=== PATIENT | female | born 1980 | race Caucasian/White ===

== ENCOUNTER 2017-01-18 16:04 | Emergency (ER) | payer OTHER ==
[~2017-01-18] VITALS: Ht 162.6 cm; Wt 52.0 kg
[~2017-01-18 16:04] MED LIST: CEPH500C3 PO; LORTA10 PO
[2017-01-18 16:17] VITALS: BP 131/87; PULSE 83; RESP 16; TEMP 98.3; O2SAT 96
[2017-01-18] MEDS ORDERED: SODIUM CHLORIDE 0.9% FLUSH 10 ML FLUSH IVF PRN (16:45)
--- NOTE | 2017-01-18 16:50 | PD ---
Physical Exam Date Seen by Provider: January 18, 2017 Time Seen by Provider: 16:45 Data Data Last Documented VS Vital Signs Date Time Temp Pulse Resp B/P Pulse Ox O2 Delivery O2 Flow Rate FiO2 01/18/17 16:47 99 Room Air 01/18/17 16:17 98.3 83 16 131/87 Orders Basic Metabolic Panel (Bmp) (01/18/17 16:41) Complete Blood Count With Diff (01/18/17 16:41) Prothrombin Time / Inr (Pt) (01/18/17 16:41) Act Partial Throm Time (Ptt) (01/18/17 16:41) Chest, Single Ap (01/18/17 16:41) Pelvis, Ap Only (Routine) (01/18/17 16:41) Ct Brain W/O Iv Contrast(Rout) (01/18/17 16:41) Ct Cerv Spine W/O Contrast (01/18/17 16:41) Ct Abd/Pel W Iv Contrast(Rout) (01/18/17 16:41) Ct Thorax/ Chest W Iv Contrast (01/18/17 16:41) Iv Access Insert/Monitor (01/18/17 16:41) Ecg Monitoring (01/18/17 16:41) Oximetry (01/18/17 16:41) Oxygen Administration (01/18/17 16:41) Sodium Chloride 0.9% Flush (Ns Flush) (01/18/17 16:45) Lidocai-Epi 1%-1:100,000 Inj (Xylocaine- (01/18/17 17:00) Lorazepam Inj (Ativan Inj) (01/18/17 17:16) Iohexol 350 Inj (Omnipaque 350 Inj) (01/18/17 17:36) Ondansetron Inj (Zofran Inj) (01/18/17 18:00) Morphine Inj (Morphine Inj) (01/18/17 18:00) Lidocai-Epi 1%-1:100,000 Inj (Xylocaine- (01/18/17 18:15) Valproic Acid (Depakene) (01/18/17 19:15) Labs Laboratory Tests Test 01/18/17 17:30 White Blood Count 18.4 TH/MM3 Red Blood Count 4.35 MIL/MM3 Hemoglobin 13.3 GM/DL Hematocrit 39.1 % Mean Corpuscular Volume 89.9 FL Mean Corpuscular Hemoglobin 30.5 PG Mean Corpuscular Hemoglobin 34.0 % Concent Red Cell Distribution Width 12.0 % Platelet Count 258 TH/MM3 Mean Platelet Volume 8.0 FL Neutrophils (%) (Auto) 90.2 % Lymphocytes (%) (Auto) 5.5 % Monocytes (%) (Auto) 3.9 % Eosinophils (%) (Auto) 0.3 % Basophils (%) (Auto) 0.1 % Neutrophils # (Auto) 16.6 TH/MM3 Lymphocytes # (Auto) 1.0 TH/MM3 Monocytes # (Auto) 0.7 TH/MM3 Eosinophils # (Auto) 0.1 TH/MM3 Basophils # (Auto) 0.0 TH/MM3 CBC Comment DIFF FINAL Differential Comment Prothrombin Time 10.9 SEC Prothromb Time International 1.0 RATIO Ratio Activated Partial 23.6 SEC Thromboplast Time Sodium Level 141 MEQ/L Potassium Level 3.7 MEQ/L Chloride Level 109 MEQ/L Carbon Dioxide Level 20.5 MEQ/L Anion Gap 12 MEQ/L Blood Urea Nitrogen 14 MG/DL Creatinine 0.79 MG/DL Estimat Glomerular Filtration 82 ML/MIN Rate Random Glucose 68 MG/DL Calcium Level 7.8 MG/DL MDM Supervised Visit with GABE: No Narrative Course I was asked to evaluate this patient's shoulder laceration. This patient was initially seen by Dr. Lindsey please see his note for details. On my examination this is a pleasant, alert white female wearing a c-collar. There is a 3-4 cm laceration over the left humeral head with loss of subcutaneous tissue. The fascia and connective tissue are visible. The surrounding skin is macerated. Laceration repair was performed. Please see my procedure note for details. Dr. Lindsey maintains care of this patient. Please see his note for disposition. Procedures Procedure Narrative LACERATION LOCATION: Left shoulder LENGTH: 4 cm with surrounding area of macerated. NUMBER OF STITCHES/BOBO: 4 internal, 5 external REPAIR: The area of the laceration was prepped with Betadine and sterilely draped. The laceration was infiltrated with 1% lidocaine with epinephrine. The wound was copiously irrigated and explored without evidence of foreign body, tendon injury or neurovascular injury. The wound was closed using 3-0 Vicryl and 4-0 Prolene. This was a 2 layer repair. A sterile dressing was applied. The patient was advised to keep the dressing clean and dry. Patient tolerated the procedure well. Scripts Doxycycline Hyclate 100 Mg [id number] Mg PO BID #14 CAP Ref 0 Prov:Jose Manuel Lindsey MD 01/18/17 Oxycodone-Acetaminophen (Percocet)5-325 mg Tab1 Tab PO Q6H PRN (PAIN) #20 TAB Ref 0 Prov:Jose Manuel Lindsey MD 01/18/17 Ermelinda De La Garza January 18, 2017 16:50
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
[2017-01-18] MEDS ORDERED: LIDOCAINE 1%/EPINEPHrine 1:100,000 SOLN 20 ML VIAL INFIL ONE ×2 (17:00→18:15)
[2017-01-18] MEDS ORDERED: LORazepam 2 MG/ML VIAL ONE (17:16)
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
[2017-01-18] MEDS ORDERED: IOHEXOL 350 MG/ML 10 ML VIAL (for RAD DIAG) IV ONE (17:36)
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
[2017-01-18 17:49] LABS: AUTOMATED NEUTROPHIL # 16.6 TH/MM3 (1.8-7.7); BASOPHIL % 0.1 % (0.0-2.0); EOSINOPHIL # 0.1 TH/MM3 (0-0.4); EOSINOPHIL % 0.3 % (0.0-4.0); HEMATOCRIT 39.1 % (35.0-46.0); HEMO FLAGS DIFF FINAL; LYMPH % 5.5 % (9.0-44.0); MEAN CELL VOLUME 89.9 FL (80.0-100.0); MEAN CORPUSCULAR HEMOGLOBIN 30.5 PG (27.0-34.0); MONO % 3.9 % (0.0-8.0); NEUT % 90.2 % (16.0-70.0); PLATELET COUNT 258 TH/MM3 (150-450); RED BLOOD COUNT 4.35 MIL/MM3 (4.00-5.30); WHITE BLOOD COUNT 18.4 TH/MM3 (4.0-11.0)
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
[2017-01-18 18:00] LABS: APTT (PATIENT) 23.6 SEC (24.3-30.1); PROTHROMBIN TIME - PATIENT 10.9 SEC (9.8-11.6)
[2017-01-18] MEDS ORDERED: ONDANSETRON HCL 4 MG/2 ML VIAL IV ONE (18:00)
[2017-01-18] MEDS ORDERED: MORPHINE SULFATE 4 MG/ML INJ IV PUSH ONE (18:00)
[2017-01-18 18:21] LABS: BICARBONATE 20.5 MEQ/L (21.0-32.0); POTASSIUM 3.7 MEQ/L (3.5-5.1)
[2017-01-18] MEDS ORDERED: depakote PO (18:41)
[2017-01-18] MEDS ORDERED: DOXY100C PO (19:04)
[2017-01-18] MEDS ORDERED: PERC5TAB12 PO (19:04)
[2017-01-18] MEDS ORDERED: VALPROIC ACID 250 MG CAP PO ONE (19:15)
[2017-01-18] MEDS ORDERED: oxyCODONE/ACETAMINOPHEN 7.5 MG/325 MG TAB PO ONE (19:45)
[2017-01-18 19:51] VITALS: BP 118/68
== END 2017-01-18 20:08 | disposition home or self-care (01) ==
LOC: NEPC 16:04
DX: S41.002A Unspecified open wound of left shoulder, initial encounter (principal); S06.9X9A Unspecified intracranial injury with loss of consciousness of unspecified duration, initial encounter; M54.2 Cervicalgia; D72.829 Elevated white blood cell count, unspecified; Z87.09 Personal history of other diseases of the respiratory system; V59.88XA Occupant (driver) (passenger) of pick-up truck or van injured in other specified transport accidents, initial encounter; Y92.410 Unspecified street and highway as the place of occurrence of the external cause
CPT/HCPCS: 12032; 70450; 71010; 71260; 72125; 72170; 74177; 80048; 85025; 85610; 85730; 96374; 96375; 99291; J2060; J2270; J2405; Q9967